=== PATIENT | female | born 1990 | race Caucasian/White ===

== ENCOUNTER 2019-09-08 16:07 | Inpatient (IN) | payer OTHER ==
[~2019-09-08] VITALS: Ht 152.4 cm; Wt 74.4 kg
[2019-09-08 16:28] VITALS: Ht 152.4 cm; Wt 74.4 kg
[2019-09-08 19:03] LABS: BASOPHIL % 0.8 % (0-2); PLATELET COUNT 247 x10^3mcL (130-400); RED CELL DISTRIBUTION WIDTH 12.1 % (11.5-14.5)
[2019-09-08 21:40] LABS: MAGNESIUM 2.1 mg/dL (1.8-2.4); PHOSPHOROUS 3.9 mg/dL (2.5-4.9)
[2019-09-08 22:05] LABS: ALBUMIN 3.8 g/dL (3.4-5.0); ALKALINE PHOSPHATASE 58 U/L (46-116); ALT/SGPT 25 U/L (14-59); AST/SGOT 14 U/L (15-37); BILIRUBIN TOTAL 0.2 mg/dL (0.20-1.00); CALCIUM 9.4 mg/dL (8.5-10.1); CARBON DIOXIDE 28.9 mmol/L (21-32); CHLORIDE SERUM 103 mmol/L (98-107); CREATININE SERUM 0.7 mg/dL (0.6-1.0); GFR1 > 60 mL/min; GLUCOSE SERUM 89 mg/dL (74-106); POTASSIUM SERUM 3.6 mmol/L (3.5-5.1); SODIUM SERUM 141 mmol/L (136-145); TOTAL PROTEIN, SERUM 7.5 g/dL (6.4-8.2)
[2019-09-09 01:16] VITALS: BP 109/53
[2019-09-09 06:35] VITALS: BP 106/48
[2019-09-09 06:37] LABS: CALCIUM 8.7 mg/dL (8.5-10.1); CHLORIDE SERUM 103 mmol/L (98-107); CREATININE SERUM 0.6 mg/dL (0.6-1.0); GFR1 > 60 mL/min; GLUCOSE SERUM 148 mg/dL (74-106); MAGNESIUM 1.7 mg/dL (1.8-2.4); PHOSPHOROUS 4.1 mg/dL (2.5-4.9); POTASSIUM SERUM 4.1 mmol/L (3.5-5.1); SODIUM SERUM 137 mmol/L (136-145)
[2019-09-09 06:38] LABS: PLATELET COUNT 232 x10^3mcL (130-400); RED CELL DISTRIBUTION WIDTH 12.1 % (11.5-14.5)
[2019-09-09 07:04] LABS: BASOPHIL % 0 % (0-2)
[2019-09-09 08:07] VITALS: BP 104/54
[2019-09-09 12:01] VITALS: BP 104/53
[2019-09-09 16:17] VITALS: BP 111/45
[2019-09-09 20:28] VITALS: BP 106/53
[2019-09-09 21:14] LABS: CALCIUM 8.7 mg/dL (8.5-10.1); CHLORIDE SERUM 105 mmol/L (98-107); CREATININE SERUM 0.6 mg/dL (0.6-1.0); GFR1 > 60 mL/min; GLUCOSE SERUM 119 mg/dL (74-106); POTASSIUM SERUM 4.2 mmol/L (3.5-5.1); SODIUM SERUM 140 mmol/L (136-145)
[2019-09-09 21:28] LABS: microscopic required? YES; urine erythrocyte 3+ (NEGATIVE)
[2019-09-09 21:36] LABS: AMPHETAMINE QUAL UR NONE DETECTED (See below)
[2019-09-10 05:32] VITALS: BP 103/55
[2019-09-10 06:31] LABS: BASOPHIL % 0.6 % (0-2); PLATELET COUNT 197 x10^3mcL (130-400); RED CELL DISTRIBUTION WIDTH 12.6 % (11.5-14.5)
[2019-09-10 06:56] LABS: CALCIUM 8.5 mg/dL (8.5-10.1); CARBON DIOXIDE 31.2 mmol/L (21-32); CHLORIDE SERUM 106 mmol/L (98-107); CREATININE SERUM 0.6 mg/dL (0.6-1.0); GFR1 > 60 mL/min; GLUCOSE SERUM 94 mg/dL (74-106); PHOSPHOROUS 3.5 mg/dL (2.5-4.9); SODIUM SERUM 141 mmol/L (136-145)
[2019-09-10 08:58] VITALS: BP 115/55
[2019-09-10 11:11] VITALS: BP 115/55
[2019-09-10 11:12] VITALS: BP 115/55
[2019-09-10 12:11] VITALS: BP 100/54
== END 2019-09-10 13:51 | disposition home or self-care (01) | DRG 545 ==
LOC: ED 16:07 → MU 20:25
PROVIDERS: Anesthesiology; Emergency Medicine; Obstetrics & Gynecology; ADMIT Student in an Organized Health Care Education/Training Program
PROC: 0UB64ZZ Excision of Left Fallopian Tube, Percutaneous Endoscopic Approach (ICD-10-PCS; principal; 2019-09-08 21:00)
DX: O00.90 Unspecified ectopic pregnancy without intrauterine pregnancy (principal); D62 Acute posthemorrhagic anemia; E83.42 Hypomagnesemia; Z88.4 Allergy status to anesthetic agent
CPT/HCPCS: G0378; J1170; J2405; J3010; J3475; J3490; J7030; Q0092